=== PATIENT | male | born 1960 | race Caucasian/White ===

== ENCOUNTER → 2025-04-30 13:51 | Outpatient (REF) | payer MEDICARE, MEDICAID, SELFPAY | LOC: RAD 13:51 | PROVIDERS: ATTENDING PHYSICIAN Internal Medicine Cardiovascular Disease; FAMILY PHYSICIAN Family Medicine | DX: I48.0 Paroxysmal atrial fibrillation (principal) | CPT/HCPCS: 75572; Q9967 ==

== ENCOUNTER → 2025-05-10 09:18 | Outpatient (REF) | payer MEDICARE, MEDICAID, SELFPAY ==
[2025-05-10 11:02] LABS: Hematocrit 42.5 % (39.0-52.0); Hemoglobin 14.2 g/dL (13.0-18.0); Mean Corp Hgb Conc. 33.4 g/dL (33.0-37.0); Mean Corpuscular Volume 95.5 fL (80.0-94.0); Nucleated Red Blood Cells % 0 % (-); Platelet Count 214 10^3/uL (130-400); Red Cell Dist. Width 13.6 % (11.5-14.5)
[2025-05-10 11:11] LABS: INR 1.89; PT 21.9 Sec (11.4-14.6)
[2025-05-10 11:30] LABS: ALT (SGPT) 10 U/L (0-50); AST (SGOT) 17 U/L (17-59); Albumin 4.1 g/dl (3.5-5.0); Alkaline Phosphatase 74 U/L (38-126); Blood Urea Nitrogen 9 mg/dl (9-20); Calcium 8.7 mg/dl (8.4-10.2); Carbon Dioxide 30 mmol/L (22-30); Chloride 104 mmol/L (98-107); Glucose 95 mg/dl (70-99); Potassium 3.8 mmol/L (3.5-5.1); Sodium 138 mmol/L (135-145); Total Protein 6.7 g/dl (6.3-8.2); eGFR > 60.00
== END ==
LOC: SDSPAT 09:18
PROVIDERS: ATTENDING PHYSICIAN Internal Medicine Cardiovascular Disease; FAMILY PHYSICIAN Family Medicine
DX: I48.21 Permanent atrial fibrillation (principal)
CPT/HCPCS: 36415; 80053; 85025; 85610; 86850; 86900; 86901; 87070; 93005

== ENCOUNTER 2025-05-18 07:55 | Inpatient (IN) | payer MEDICARE, MEDICAID, SELFPAY ==
[2025-05-10 09:54] VITALS: BMI 40.0
[2025-05-18] VITALS (9 sets, daily range): BP systolic 111–143; BP diastolic 66–97; BMI 33.0
[2025-05-18 09:04] LABS: INR 1.58; PT 19.0 Sec (11.4-14.6)
--- NOTE | 2025-05-18 10:42 | ITS.CL.PN ---
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
Procedure
Procedure Note:
Watchman implantation report
Date: May 18, 2025
History: Multiple falls as well as permanent atrial fibrillation status post single-chamber pacemaker and AVJ ablation.
Watchman implant: Vergara
Groin access, transseptal and left atrial appendage anatomy delineation: Maryjanea
Procedure report:
After informed consent and patient safety timeout the patient was sedated under general anesthesia by the anesthesiology service. SONDRA probe was placed into the esophagus to guide transseptal puncture and device delivery. After sedation and patient
safety timeout under direct ultrasound guidance the right femoral vein was accessed by Dr. Montenegro with a micropuncture needle and a 8 Mongolian short sheath was placed in right femoral vein. First over an Amplatz Super Stiff 0.035 wire which was placed
into the SVC the double curve watchman was brought up to the SVC. A Amplatz wire was utilized to avoid entrapment with the pacing leads. This was exchanged through the sheath for a pigtail RF wire which together with the watchman sheath was
brought to the interatrial fossa and anterior and inferior location and under SONDRA guidance and after RF application the left atrium was accessed and the sheath was brought in the left atrium. The RF wire was exchanged for a pigtail which
demonstrated a 29 to 30 mm ostium and a broccoli shaped with workable depth in the anterior lobe.
A 35 mm device was chosen given the ostium and I delivered a 35 mm device distally with adequate coverage of all the individual frond-like lobes in an ostial location which met prior Pass criteria with ostial delivery, venogram demonstrating
complete coverage, 22 to 26% compression and no leak around the device. The device was then deployed and sheath and catheters were removed into the right atrium. Heparin was given for the duration of the procedure with ACT greater than 400 seconds
for the duration of the procedure. 40 mg of protamine was given and a [id number] suture was placed in the right femoral vein. The patient tolerated the procedure well. Patient's INR is noted to be 1.6 and we will give him additional Coumadin
post procedure to achieve a goal INR 2-3.
Impression: 35 mm Watchman device. 3 months of warfarin goal INR 2-3 with SONDRA at 3 months post implant to determine whether the patient comes off Coumadin.
CC: Dr. Sujit Calhoun at [facility]
--- NOTE | 2025-05-18 10:51 | WATCHMAN.MD ---
Watchman Implant
-
ELECTROPHYSIOLOGY/INTERVENTIONAL PROCEDURE REPORT
Date of Procedure: May 18, 2025
Referring: Dr. Mau Calhoun
Assisting Physician: Sukhdev Vergara
PROCEDURES:
1. Left atrial appendage occlusion device using 25 mm WATCHMAN FLX device
2. Ultrasound-guided right common femoral venous access
INDICATION: High [id number] warranting usp full anticoagulation but inability to do this given his bleeding risk/bleeding complication.
ACCESS: Right common femoral vein, 16Fr sheath and 9Fr. sheaths, under US guidance using micropunture kit.
Ultrasound was utilized for vascular access. The right femoral vein was visualized under ultrasound, and the vessels was patent. An image was stored permanently in the patient's medical record. Under direct ultrasound guidance, an 8 Palestinian
sheaths was inserted into the right common femoral vein, using a micropuncture kit through a modified Seldinger technique.
HEMODYNAMICS : (mmHg)
LA Pressure: 17
PROCEDURE REPORT:
After informed consent and patient safety 'Timeout' the patient was intubated and sedated by the anesthesiology service. Under ultrasound guidance, the right femoral vein was accessed by Dr. Sherry Montenegro for transseptal puncture. Concomitant
transesophageal echocardiogram was performed by Dr. Mike Maldonado
Baseline intracardiac ultrasound demonstrated no pericardial effusion and baseline SONDRA images revealed a trace pericardial effusion.
After ruling out a left atrial appendage thrombus, the patient was heparinized for an ACT between 350-400 seconds and under SONDRA and intracardiac ultrasound guidance transseptal puncture was performed by Dr. Sherry Montenegro using the Marcy VersaCross
trans-septal system in a mid position on the inferior-superior axis and a mid position on the anterior-posterior axis.
Once transseptal puncture was performed over the Marcy Versacross pigtail 0.035 wire, which was parked in the body of left atrial appendage, the watchWorkiva access double curve sheath was advanced over this into the left atrium. A 5 Palestinian pigtail
catheter was placed into the left atrial appendage and an appendage gram was performed using intravenous contrast dye demonstrating an anatomy that was suitable likely for a 35mm WATCHMAN FLX device.
After appropriately prepping the device, Dr. Vergara successfully deployed a 35 mm WATCHMAN FLX device. Device showed excellent positioning with no leaks post device deployment. 22 to 26 % compression was noted in the device after deployment. A
'tug-test' was performed demonstrating stability of the device. Given PASS criteria were met, the device was then released successfully by Dr. Vergara.
Post procedure, SONDRA imaging demonstrated no new or worse pericardial effusion. Sheaths and catheters were removed from the left atrium and heparin was reversed using protamine. Catheters removed from the femoral veins with [id number] suture
applied. The patient tolerated the procedure well.
Closure Device: Figure of 8 suture
CONCLUSIONS
1. Successful deployment of 35 mm WATCHMAN FLX device under SONDRA guidance.
RECOMMENDATIONS
1. Plan for daily coumadin with INR goal 2-3 for the next 3 months.
2. 3-month SONDRA post procedure to assess stability of device and rule out any raza-device leaks. If no issues noted on the 3-month SONDRA post watchman placement such as a greater than 5 mm leak, plan would be to stop anticoagulation at that point and
continue daily baby aspirin lifelong.
3. Figure of 8 suture removal prior to discharge.
Copy to: Mau Calhoun
Sherry Montenegro MD, [facility]
[2025-05-18 11:22] LABS: ACT-LR - POC > 397 Seconds (116-155)
--- NOTE | 2025-05-18 15:15 | W.DS.TRANS ---
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
-
Discharge Instructions:
Discharge Diagnosis/Procedures Atrial fibrillation post watchman
Diet Low Cholesterol
Driving Restrictions No driving for 24 hours
Blood Work Check INR on Saturday
Others Tests YOUR SONDRA IS SCHEDULED FOR 08/24/2025 WITH
DAVON AT [facility]. YOU
WILL RECEIVE A PHONE CALL FROM THE HOSPITAL WITH
INSTRUCTIONS AND TIME OF ARRIVAL. YOUR PRE-
ADMISSION TESTING IS SCHEDULED FOR 08/17/2025 @
10:00.
Instructions:
Stand-Alone Forms: DC Instructions- Cath/EP Lab
Changes to Home Medications: No
Discharge Medications:
DC Medications w/original date entered in [facility]
ascorbic acid (vitamin C) 500 mg tablet (Vitamin C) 500 mg PO DAILY Supplement 05/06/25
celecoxib 200 mg capsule (Celebrex) 200 mg PO DAILY Anti-Inflammatory 05/06/25
cholecalciferol (vitamin D3) 25 mcg (1,000 unit) tablet (Vitamin D3) 25 mcg PO DAILY Supplement 05/06/25
cholecalciferol (vitamin D3) 50 mcg (2,000 unit) capsule (Vitamin D3) 50 mcg PO DAILY Supplement 05/06/25
citalopram 40 mg tablet 40 mg PO DAILY Mental Health/Anxiety 05/06/25
clonazepam 1 mg tablet 1 mg PO BID Mental Health/Anxiety 05/06/25
ferrous sulfate 325 mg (65 mg iron) tablet (iron) 325 mg PO DAILY Supplement 05/06/25
levothyroxine 175 mcg tablet (Synthroid) 175 mcg PO MOTUTHFRSA Thyroid 05/06/25
levothyroxine 200 mcg tablet (Synthroid) 200 mcg PO SUWE Thyroid 05/06/25
montelukast 10 mg tablet 10 mg PO DAILY Allergies 05/06/25
nitroglycerin 0.4 mg sublingual tablet 0.4 mg sublingual Q5-15M PRN chest pain 05/06/25
omeprazole 40 mg capsule,delayed release 40 mg PO DAILY Gastrointestinal Issue 05/06/25
psyllium husk 3.4 gram/5.4 gram oral powder (Metamucil) 1 tbsp PO DAILY Gastrointestinal Issue 05/06/25
simvastatin 40 mg tablet 40 mg PO DAILY High Cholesterol 05/06/25
spironolactone 50 mg tablet 50 mg PO DAILY Heart Disease/Condition 05/06/25
tamsulosin 0.4 mg capsule 0.4 mg PO DAILY Urinary Issue 05/06/25
warfarin 3 mg tablet 3 mg PO DAILY Blood Clot Prevention/Tx 05/06/25
zolpidem 10 mg tablet 10 mg PO HS Sleep 05/06/25
Home Medication Changes
Pending Results: No
== END 2025-05-18 16:05 | disposition home or self-care (01) | DRG 274 ==
LOC: CATH-IN 07:55
PROVIDERS: Internal Medicine Cardiovascular Disease; ADMITTING PHYSICIAN Internal Medicine Interventional Cardiology; ATTENDING PHYSICIAN Internal Medicine Cardiovascular Disease; FAMILY PHYSICIAN Family Medicine
PROC: B246ZZ4 Ultrasonography of Right and Left Heart, Transesophageal (ICD-10-PCS; 2025-05-18)
PROC: 02L73DK Occlusion of Left Atrial Appendage with Intraluminal Device, Percutaneous Approach (ICD-10-PCS; 2025-05-18)
DX: I48.21 Permanent atrial fibrillation (principal); R29.6 Repeated falls; Z95.0 Presence of cardiac pacemaker
CPT/HCPCS: 33340; 85347; 85610; 86900; 86901; 93005; 93355; C1769; C1894